=== PATIENT | male | born 1980 | race Caucasian/White ===

== ENCOUNTER 2016-05-02 23:55 | Emergency (ER) | payer OTHER ==
--- NOTE | ~2016-05-02 | CR172 ---
[facility] A Service of [facility] & [facility] RADIOLOGY TEXT RESULTS PATIENT: DAVID SOTO LOCATION: [facility] : [birth year] UNIT #: [id number] AGE: [address]: Wendie Hermosillo APRN SEX: M ORDER DR: [id number] [facility] [address]. [place], [place] [address] [id number] MR#: [id number] Acc #: [id number] NAME: DAVID SOTO. : 1980 SEX: M STUDY DATE/TIME: 05/03/2016 00:24 UNIT: [facility] ROOM: STUDY DESCRIPTION: CR Knee 3 Views Lt Attending Physician: Wendie Hermosillo A.P.R.N. Ordering Physician: Eliazar Benton M.D. Primary Care Physician: Primary Care Physician No MEDICAL IMAGING REPORT This report is preliminary unless electronic signature is present EXAM Left knee, 05/03 at 00:24 hours INDICATION Knee pain and soft tissue swelling for 2 days. No known injury. FINDINGS 3 views of the left knee were obtained. No comparison. No fracture or malalignment is seen. There is no joint effusion. IMPRESSION Normal left knee. Dictated by... Eliazar Harper Jr., M.D. THIS IS AN ELECTRONICALLY VERIFIED REPORT Eliazar Harper Jr., M.D. at 05/03/2016 10:59 PM ZURI/santi TD: 05/03/2016 16:29 JOB #: [id number] MEDICAL IMAGING REPORT COPY
== END 2016-05-03 02:38 | disposition home or self-care (01) ==
LOC: CED 23:55
DX: S83.92XA Sprain of unspecified site of left knee, initial encounter (principal); Z88.0 Allergy status to penicillin; F17.210 Nicotine dependence, cigarettes, uncomplicated; X58.XXXA Exposure to other specified factors, initial encounter; Y92.9 Unspecified place or not applicable
CPT/HCPCS: 29505; 29515; 73562; 96372; 99283; J1885